=== PATIENT | male | born 1975 ===

== ENCOUNTER 2016-07-09 23:44 | Emergency (ER) | payer BC ==
[2016-07-10 00:34] VITALS: TEMP 98.7
[2016-07-10] MEDS ORDERED: DiphenhydrAMINE 50 mg/ml Inj IV STA (00:41)
[2016-07-10] MEDS ORDERED: Sodium Chloride 0.9% 1,000 ML IV STA (00:41)
--- NOTE | 2016-07-10 01:26 | ED PDOC ---
HPI: Allergic Reaction Time Seen by Provider: 07/10/16 00:33 Chief Complaint (Nursing): Allergic Reaction Chief Complaint (Provider): Lower lip and upper chin swelling History Per: Patient History/Exam Limitations: no limitations Onset/Duration Of Symptoms: Mins (90) Current Symptoms Are (Timing): Still Present Context: Other (used lavern seltzer) Associated Symptoms: Swelling. denies: Itching Home/EMS Treatment: None Additional Complaint(s): The pt is a 41yo male with no PMHx, presents to the ED for evaluation of facial swelling 90 minutes [employer]. Pt reports his symptoms presented after he took Lavern Quogue for his sore throat. He denies any SOB, throat tightness, rash or itchiness. Reports swelling is mostly localized to lower lip and submental region. Pt denies any previous known allergies. Past Medical History Reviewed: Historical Data, Nursing Documentation, Vital Signs Vital Signs: Last Vital Signs Temp 98.7 F 07/10/16 00:32 Pulse 87 07/10/16 00:32 Resp 16 07/10/16 00:32 BP 154/105 H 07/10/16 00:32 Pulse Ox 100 07/10/16 00:32 - Medical History PMH: No Chronic Diseases - Surgical History Surgical History: No Surg Hx - Family History Family History: States: No Known Family Hx - Social History Current smoker - smoking cessation education provided: No Alcohol: Occasional Drugs: Denies - Home Medications Home Medications: Ambulatory Orders Medication Instructions Recorded Cetirizine HCl [Zyrtec] 10 mg PO QAM #10 capsule 07/10/16 Methylprednisolone [Medrol Dosepak] 4 mg PO ASDIR #1 pkg 07/10/16 - Allergies Allergies/Adverse Reactions: Allergies Allergy/AdvReac Type Severity Reaction Status Date / Time aspirin [From Lavern-Quogue] Allergy ANAPHYLAXIS Verified 07/10/16 00:31 citric acid Allergy ANAPHYLAXIS Verified 07/10/16 00:31 [From Lavern-Quogue] sodium bicarbonate Allergy ANAPHYLAXIS Verified 07/10/16 00:31 [From Lavern-Quogue] Review of Systems ROS Statement: Except As Marked, All Systems Reviewed And Found Negative ENT: Positive for: Other (swelling to lower lip and upper chin area. no throat tightness) Respiratory: Negative for: Shortness of Breath Skin: Negative for: Rash, Other (itchiness) Physical Exam - Reviewed Nursing Documentation Reviewed: Yes Vital Signs Reviewed: Yes - Physical Exam Appears: Positive for: Well, Non-toxic, No Acute Distress Head Exam: Positive for: ATRAUMATIC, NORMAL INSPECTION, NORMOCEPHALIC Skin: Positive for: Normal Color, Warm. Negative for: Rash Eye Exam: Positive for: Normal appearance ENT: Positive for: Normal ENT Inspection, Pharynx Is (no swelling noted to ooropharynx), Other (Mild edema noted to submental region and lower lip. No tongue swelling noted.) Neck: Positive for: Normal Cardiovascular/Chest: Positive for: Regular Rate, Rhythm Respiratory: Positive for: Normal Breath Sounds. Negative for: Respiratory Distress Neurologic/Psych: Positive for: Alert, Oriented - ECG O2 Sat by Pulse Oximetry: 100 (RA) Pulse Ox Interpretation: Normal - Critical Care Total Time (In Min): 30 Documented Critical Care: Time excludes all time spent performint seperately billable procedures Disposition - Clinical Impression Clinical Impression: Allergic reaction - Patient ED Disposition Is Patient to be Admitted: No - Disposition Disposition: Routine/Home Disposition Time: 02:54 Condition: STABLE Prescriptions: Cetirizine HCl [Zyrtec] 10 mg PO QAM #10 capsule Methylprednisolone [Medrol Dosepak] 4 mg PO ASDIR #1 pkg Instructions: General Allergic Reaction (ED) Print Language: [place] Medical Decision Making Medical Decision Making: Time: 0045 Impression: 41yo male with facial swelling in setting of Lavern Quogue use Plan: * Labs * IV Benadryl * Solumedrol * Pepcid * Reassess Time: 0253 Pt reports feeling much better. Vitals reviewed and are stable. Pt stable for d/ c home. Final Diagnosis: Allergic reaction Scribe Attestation: Documented by Denita Finnegan acting as a scribe for Nav Haynes MD. Provider Attestation: All medical record entries made by the Scribe were at my direction and personally dictated by me. I have reviewed the chart and agree that the record accurately reflects my personal performance of the history, physical exam, medical decision making, and the department course for this patient. I have also personally directed, reviewed, and agree with the discharge instructions and disposition.
[2016-07-10 03:26] VITALS: BP 133/88; PULSE 86; RESP 18; O2SAT 98
== END 2016-07-10 03:25 | disposition home or self-care (01) ==
LOC: H.ER 23:44
DX: T78.40XA Allergy, unspecified, initial encounter (principal); J02.9 Acute pharyngitis, unspecified
CPT/HCPCS: 96361; 96365; 96375; 99283; J1200; J2930; J7040